=== PATIENT | male | born 1950 | race African-American/Black ===

== ENCOUNTER 2018-05-21 10:00 | Emergency (ER) | payer MEDICARE, OTHER ==
[~2018-05-21] VITALS: Ht 188 cm; Wt 95.0 kg
[2018-05-21 11:39] LABS: BASOPHILS % 0.4 % (0.0-2.0); EOSINOPHILS % 1.6 % (0.0-5.0); HEMATOCRIT. 41.2 % (42.0-52.0); HEMOGLOBIN. 14.1 g/dL (14.0-18.0); LYMPHOCYTES % 15.8 % (20.0-50.0); MEAN CORPUSCULAR HEMOGLOBIN 30.2 pg (28.0-32.0); MEAN CORPUSCULAR VOLUME 88.2 fL (80.0-94.0); MEAN PLATELET VOLUME 10.9 fl (7.4-10.4); MONOCYTES % 9.4 % (2.0-8.0); NEUTROPHILS % 72.8 % (40.0-76.0); PLATELET 160 x1000/uL (130-400); RED BLOOD CELL COUNT 4.67 mill/uL (4.7-6.1); RED CELL DISTRIBUTION WIDTH 15.7 % (11.6-14.6)
[2018-05-21 11:47] LABS: CHLORIDE 107 mEq/L (98-107)
[2018-05-21 13:45] VITALS: BP 140/79
== END 2018-05-21 13:46 | disposition home or self-care (01) ==
LOC: ER 10:00
DX: R05 Cough (principal); I10 Essential (primary) hypertension; Z86.73 Personal history of transient ischemic attack (TIA), and cerebral infarction without residual deficits; Z93.1 Gastrostomy status; Z98.890 Other specified postprocedural states; Z88.2 Allergy status to sulfonamides; Z88.5 Allergy status to narcotic agent
CPT/HCPCS: 36415; 71045; 83880; 84484; 93005; 99285

== ENCOUNTER 2018-06-02 06:44 | Emergency (ER) | payer MEDICARE, OTHER ==
[~2018-06-02] VITALS: Ht 185.4 cm; Wt 95.0 kg
[2018-06-02 10:11] VITALS: BP 126/78
== END 2018-06-02 10:17 | disposition home or self-care (01) ==
LOC: ER 06:44
DX: R53.1 Weakness (principal); I10 Essential (primary) hypertension; Z88.2 Allergy status to sulfonamides; Z88.5 Allergy status to narcotic agent; Z86.73 Personal history of transient ischemic attack (TIA), and cerebral infarction without residual deficits; Z93.1 Gastrostomy status; Z98.890 Other specified postprocedural states
CPT/HCPCS: 99283

== ENCOUNTER 2019-06-20 18:10 | Emergency (ER) | payer MEDICARE, OTHER ==
[~2019-06-20] VITALS: Ht 182.9 cm; Wt 87.0 kg
[2019-06-20] MEDS ORDERED: SODIUM CHLORIDE 0.9% 1,000 ML IV ONE (18:51)
[2019-06-20 21:41] LABS: INR 1.3; PROTHROMBIN TIME 13.6 sec (9.6-11.0)
[2019-06-20 22:04] LABS: CLARITY URINE TURBID (CLEAR); COLOR URINE YELLOW (YELLOW); KETONES URINE NEGATIVE (NEGATIVE); LEUKOCYTE ESTERASE URINE 3+ (NEGATIVE); NITRITE URINE POSITIVE (NEGATIVE); OCCULT BLOOD URINE 3+ (NEGATIVE); PH URINE >=9.0 (4.5-8.0); PROTEIN URINE 1+ (NEGATIVE); SPECIFIC GRAVITY URINE 1.018 (1.005-1.030)
[2019-06-21] MEDS ORDERED: CEFTRIAXONE 1 G PREMIX 50 ML IV ONE
[2019-06-21 00:26] LABS: BASOPHILS % 0.5 % (0.0-2.0); EOSINOPHILS % 2.2 % (0.0-5.0); HEMATOCRIT. 46.5 % (42.0-52.0); HEMOGLOBIN. 16.1 g/dL (14.0-18.0); LYMPHOCYTES % 31.5 % (20.0-50.0); MEAN CORPUSCULAR HEMOGLOBIN 32.4 pg (28.0-32.0); MEAN CORPUSCULAR VOLUME 93.4 fL (80.0-94.0); MONOCYTES % 9.8 % (2.0-8.0); RED BLOOD CELL COUNT 4.98 mill/uL (4.7-6.1); RED CELL DISTRIBUTION WIDTH 13.3 % (11.6-14.6)
[2019-06-21 00:36] LABS: CHLORIDE 107 mEq/L (98-107)
[2019-06-21 00:52] LABS: MEAN PLATELET VOLUME 10.7 fl (7.4-10.4)
[2019-06-21 00:53] LABS: PLATELET 117 x1000/uL (130-400)
[2019-06-21 01:00] LABS: HEPATITIS B SURFACE ANTIGEN NEGATIVE
[2019-06-21] MEDS ORDERED: IOHEXOL-300 100 ML BOTTLE ONE (01:53)
[2019-06-21 02:58] VITALS: BP 134/76
== END 2019-06-21 03:06 | disposition home or self-care (01) ==
LOC: ER 18:10
DX: N20.0 Calculus of kidney (principal); R31.0 Gross hematuria; I10 Essential (primary) hypertension; I69.354 Hemiplegia and hemiparesis following cerebral infarction affecting left non-dominant side; Z93.1 Gastrostomy status; Z87.828 Personal history of other (healed) physical injury and trauma
CPT/HCPCS: 36415; 74178; 80053; 81003; 83690; 85025; 85610; 86703; 86803; 87086; 87340; 96365; 99284; J0696; J7030; Q9967